=== PATIENT | female | born 1960 | race Caucasian/White ===

== ENCOUNTER 2019-01-23 14:00 | Emergency (ER) | payer OTHER ==
[~2019-01-23] VITALS: Ht 172.7 cm; Wt 75.0 kg
[2019-01-23] MEDS ORDERED: DIPH,PERTUSS(ACELL),TET VAC/PF 0.5 ML IM-VACC ONE ×2 (14:30→14:33)
[2019-01-23 14:44] LABS: BASOPHILS # (AUTO) 0.08 x10^3/uL (0-0.1); BASOPHILS % (AUTO) 1 % (0-1); EOSINOPHILS # (AUTO) 0.13 x10^3/uL (0-0.4); EOSINOPHILS % (AUTO) 2 % (1-7); LYMPHOCYTES % (AUTO) 29 % (22-44); MD NO; MEAN CORPUSCULAR HEMOGLOBIN 32.9 pg (27.0-34.8); MEAN CORPUSCULAR HGB CONC 32.3 g/dL (32.4-35.8); MEAN CORPUSCULAR VOLUME 101.7 fL (80-100); MEAN PLATELET VOLUME 7.3 fL (7.4-10.4); MONOCYTES # (AUTO) 0.58 x10^3/uL (0.2-0.8); MONOCYTES % (AUTO) 9 % (2-9); NEUTROPHILS # (AUTO) 3.77 x10^3/uL (1.8-6.8); NEUTROPHILS % (AUTO) 58 % (42-75); PLATELET COUNT 335 x10^3/uL (130-400); RED BLOOD COUNT 4.33 x10^6/uL (3.82-5.3); RED CELL DISTRIBUTION WIDTH 13.9 % (9.6-15.2)
--- NOTE | 2019-01-23 14:46 | NUR ---
PT OUT OF BED TO RESTROOM WITHOUT NOTIFYING ANYONE. ACCOMPANIED PATIENT BACK TO BED AND REMINDED HER TO USE CALL LIGHT BEFORE GETTING UP. RECONNECTED TO [employer].
[2019-01-23 14:56] LABS: ALANINE AMINOTRANSFERASE 29 U/L (12-78); ALBUMIN 3.5 g/dL (3.4-5.0); ANION GAP 6 mmol/L (5-15); CALCIUM 7.8 mg/dL (8.5-10.1); CHLORIDE 109 mmol/L (98-107); CREATININE 0.72 mg/dL (0.55-1.02)
--- NOTE | 2019-01-23 14:56 | NUR ---
PT SPOUSE CALLED ON PATIENT CELLPHONE. THIS RN ANSWERED THE PHONE AND NOTIFIED JUHI OF PATIENT SITUATION. JUHI SAID HE WOULD BE HERE SOON POSSIBLE. AFTER GETTING OFF PHONE WITH PT SPOUSE, PT REPORTS SPOUSE WILL BE VERY UPSET. WHEN ASKED WHY PATIENT REPORTS THAT SHE IS AN ALCOHOLIC AND HAS BEEN ONE "PRETTY MUCH MY WHOLE LIFE."
[2019-01-23 15:00] LABS: ALKALINE PHOSPHATASE 99 U/L (45-117); BILIRUBIN,TOTAL 0.2 mg/dL (0.2-1.0); TOTAL PROTEIN 7.5 g/dL (6.4-8.2)
--- NOTE | 2019-01-23 15:05 | NUR ---
PT TO CT.
--- NOTE | 2019-01-23 15:33 | NUR ---
PT BACK IN ROOM, NO COMPLAINTS. RESTING COMFORTABLY. PA NOTIFIED OF CRITICAL ETOH LEVEL.
--- NOTE | 2019-01-23 15:45 | NUR ---
PT AT BEDSIDE. CLEANING PATIENTS HAIR OF BLOOD TO ALLOW FOR ASSESSMENT OF POSSIBLE HEAD LAC.
[2019-01-23 16:15] VITALS: BP 115/74
== END 2019-01-23 16:57 | disposition home or self-care (01) ==
LOC: ED 16:50
DX: S00.01XA Abrasion of scalp, initial encounter (principal); F10.121 Alcohol abuse with intoxication delirium; Y90.9 Presence of alcohol in blood, level not specified; Z72.89 Other problems related to lifestyle
CPT/HCPCS: 36415; 70450; 72125; 80053; 80307; 85025; 90471; 90715; 99284